=== PATIENT | male | born 1970 | race Caucasian/White ===

== ENCOUNTER 2017-03-09 08:33 | Emergency (ER) | payer OTHER, SELFPAY ==
[~2017-03-09] VITALS: Ht 190.5 cm; Wt 100.0 kg
[2017-03-09 08:42] VITALS: BP 114/86
[2017-03-09] MEDS ORDERED: PROMETHAZINE/COD. 10MG/6.25MG/5 ML ORAL SOL PO ONE (11:00)
[2017-03-09 11:50] LABS: RAPID INFLUENZA A Negative (Negative); RAPID INFLUENZA B Negative (Negative)
== END 2017-03-09 12:54 | disposition home or self-care (01) ==
LOC: ED 12:48
DX: B34.9 Viral infection, unspecified (principal)
CPT/HCPCS: 87400; 99284